=== PATIENT | female | born 1940 | race Caucasian/White ===

== ENCOUNTER → 2019-02-08 | Outpatient (CLI) | payer MEDICARE ==
--- NOTE | 2019-02-08 15:58 | Diagnostic Imaging Report ---
INDICATION: Left foot pain. TIME OF EXAMINATION: 3:02 PM. TECHNIQUE: Three views of the left foot were obtained. FINDINGS: The metatarsals are intact. The phalanges appear to be intact. The midfoot and hindfoot are unremarkable apart from a plantar calcaneal spur. No fractures are seen. IMPRESSION: No acute bony abnormality is detected. Dictated by: Dictated on workstation # [id number]
== END ==
LOC: RAD FS 14:37
PROVIDERS: ATTEND Nurse Practitioner Family
DX: M79.672 Pain in left foot (principal)
CPT/HCPCS: 73630

== ENCOUNTER → 2021-07-04 | Outpatient (CLI) | payer MEDICARE ==
--- NOTE | 2021-07-04 15:45 | Diagnostic Imaging Report ---
INDICATION: Postprandial diarrhea. COMPARISON: None. FINDINGS: Single supine radiographic view of the abdomen was obtained. Small bowel loops are nondistended. There is no large collection of free intraperitoneal air. Surgical clips are noted on the right. No unexpected extraosseous calcifications are identified. Osseous structures show age-related degenerative changes. IMPRESSION: 1. Nonobstructive small bowel gas pattern. Dictated by: Dictated on workstation # [id number]
== END ==
LOC: RAD FS 13:57
PROVIDERS: ATTEND Nurse Practitioner Family
DX: K91.1 Postgastric surgery syndromes (principal); R19.7 Diarrhea, unspecified
CPT/HCPCS: 74018